=== PATIENT | male | born 1985 | race Caucasian/White ===

== ENCOUNTER 2021-09-21 09:21 | Emergency (ER) | payer MEDICAID, SELFPAY ==
[2021-09-21 09:51] VITALS: BP 147/91; PULSE 89; RESP 16; TEMP 36.6; O2SAT 96; BMI 40.4
--- NOTE | 2021-09-21 10:02 | XRR_ITS ---
PROCEDURE INFORMATION: Exam: XR Right Finger(s) Exam date and time: 09/21/2021 10:08 AM Age: 36 years old Clinical indication: Injury or trauma; Other: Smashed finger; Crushing; Hand; Right; Additional info: Trauma, 4th TECHNIQUE: Imaging protocol: Radiologic exam of the Right fingers. Views: Minimum 2 views. COMPARISON: No relevant prior studies available. FINDINGS: Bones/joints: No fracture identified. No dislocation. No significant degenerative changes. Soft tissues: Unremarkable. XR/XR finger RT min 2V 13538 IMPRESSION: No acute findings.
--- NOTE | 2021-09-21 10:03 | ED_ITS ---
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 Last tetanus was just a few months ago. He has no other injuries or complaints at this time. complaint: injury to: right and finger Onset (ago): hour(s) Other Extremity Injury: Right: fingers Other injuries: none Place: work Severity: moderate Relieving factors: immobilization Exacerbating factors: movement of extremity Context: direct blow and laceration Associated symptoms: Reports no associated symptoms Treatments prior to arrival: bandage Review of Systems Musc: Reports: extremity pain (R 4th finger) Skin/Breast: Reports: other (finger laceration) Neuro: Denies: numbness in extremities or sensory changes Physical Exam Const: COMMON NORMALS: no acute distress, patient oriented x3, no limitations and alert GENERAL APPEARANCE: cooperative Extremity: COMMON NORMALS: capillary refill normal GENERAL: Yes normal exam except as noted RIGHT UPPER EXTREMITY: Yes hand & digits OTHER: pt has a 5-6mm U shaped laceration overlying the dorsal R 4th PIP joint; laceration does not appear deep and I cannot visualize any tendon or bony involvement; digit NV intact; minimal swelling noted around the joint Neuro: COMMON NORMALS: patient oriented x3, moves all extremities, no focal motor deficits and no sensory deficits noted SENSORIUM/ORIENTATION: Yes alert Procedures Laceration Laceration 1: Site: hand (R 4th finger) Side (If applicable): right Size (cm): 1.25 Description: linear Depth: simple, single layer Local Anesthetic: lidocaine 1% (digital block) Amount of anesthesia used (mL): 2.0 Pre-repair: wound explored and irrigated extensively Skin layer closed with: nylon Size (cm): 5-0 Number of sutures: 3 Technique: simple, interrupted Course Vital Signs: Vital signs: Vital Signs Temperature 97.8 F 09/21/21 09:51 Pulse Rate 90 09/21/21 10:27 Respiratory Rate 16 09/21/21 10:27 Blood Pressure 121/83 09/21/21 10:27 Pulse Oximetry 94 09/21/21 10:27 Oxygen Delivery Me thod 09/21/21 10:27 MDM - Extremity Injury (Upper) Medical Decision Making XR neg. Wound copiousy irrigated and repaired as documented. Wound care/infection precautions discussed. Discharge Plan Discharge Patient Disposition: Home Clinical Impression: Laceration of right ring finger Qualifiers: Encounter type: initial encounter Damage to nail status: without damage Foreign body presence: without foreign body Qualified Code(s): S61.214A - Laceration without foreign body of right ring finger without damage to nail, initial encounter Condition: Stable Discharge Orders: Discharge ED (Routine); Ordered 09/21/21 Ordered By: Maria Elena Cazares Patient Instructions: Finger Laceration (ED) Activity Restrictions/Additional Instructions: Keep wound/laceration clean with warm soap and water twice daily. Monitor for signs of infection such as redness, swelling, increased pain, or drainage. Please seek medical re-evaluation if these occur. If you received sutures today these will need to be removed (unless you were told by the provider that they are absorbable). The provider should have discussed with you the length of time until removal-7 DAYS. You may return to the emergency department for this service. Coding Level of Care Code ED Production Team Member for Doreen Fwmonty Exam Expanded Problem Focused
[2021-09-21 10:27] VITALS: BP 121/83; PULSE 90; RESP 16; O2SAT 94
== END 2021-09-21 11:05 | disposition home or self-care (01) ==
PROVIDERS: Emergency Provider Physician Assistant
DX: S61.214A Laceration without foreign body of right ring finger without damage to nail, initial encounter (principal); W26.8XXA Contact with other sharp object(s), not elsewhere classified, initial encounter
CPT/HCPCS: 12001; 73140; 99283; A6446